=== PATIENT | male | born 1995 | race Two or more races ===

== ENCOUNTER 2019-08-06 16:45 | Emergency (ER) | payer OTHER ==
[~2019-08-06] VITALS: Ht 177.8 cm; Wt 72.6 kg
[2019-08-06 18:39] VITALS: BP 101/55
[2019-08-06] MEDS ORDERED: IBUPROFEN 800 MG TAB PO ONE (19:00)
== END 2019-08-06 20:46 | disposition home or self-care (01) ==
LOC: ER 16:45
DX: S92.351A Displaced fracture of fifth metatarsal bone, right foot, initial encounter for closed fracture (principal); S93.402A Sprain of unspecified ligament of left ankle, initial encounter; F17.210 Nicotine dependence, cigarettes, uncomplicated; V23.4XXA Motorcycle driver injured in collision with car, pick-up truck or van in traffic accident, initial encounter; Y93.89 Activity, other specified; Y92.89 Other specified places as the place of occurrence of the external cause; Y99.8 Other external cause status
CPT/HCPCS: 29515; 72100; 73610; 73630

== ENCOUNTER 2019-10-07 19:17 | Emergency (ER) | payer OTHER ==
[~2019-10-07] VITALS: Ht 177.8 cm; Wt 81.6 kg
[2019-10-07 20:00] VITALS: BP 117/83
== END 2019-10-07 22:19 | disposition left against medical advice (07) ==
LOC: ER 19:17
DX: S50.311A Abrasion of right elbow, initial encounter (principal); S80.211A Abrasion, right knee, initial encounter; F17.210 Nicotine dependence, cigarettes, uncomplicated; V86.56XA Driver of dirt bike or motor/cross bike injured in nontraffic accident, initial encounter; Y93.55 Activity, bike riding; Y92.828 Other wilderness area as the place of occurrence of the external cause; Y99.8 Other external cause status
CPT/HCPCS: 73080; 73562; 74176